=== PATIENT | male | born 1955 | race Caucasian/White ===

== ENCOUNTER 2018-01-27 11:54 | Outpatient (CLI) | payer OTHER ==
[2018-01-27 13:24] LABS: Hemoglobin 14.8 g/dL (14.0-18.0); Mean Corpuscular HGB CONC 32.8 g/dL (32.0-36.0); Mean Corpuscular Hemoglobin 27.5 pg (27.0-31.0); Mean Corpuscular Volume 83.8 fl (80.0-94.0); Mean Platelet Volume 9.2 fL (7.4-10.4); Platelet Count 173 thou/uL (130-400); White Blood Cell (WBC) Count 10.5 thou/uL (4.8-10.8)
[2018-01-27 13:51] LABS: Anion Gap 14 mmol/L (10-20); BUN (Urea Nitrogen) 15 mg/dL (8.4-25.7); Calc. Creatinine Clearance 0 mL/min (70-130); Calcium 9.9 mg/dL (7.8-10.44); Carbon Dioxide 30 mmol/L (23-31); Chloride 102 mmol/L (98-107); Estimated GFR-MDRD 83; Glucose 142 mg/dL (80-115); Potassium 4.3 mmol/L (3.5-5.1); Sodium 142 mmol/L (136-145)
--- NOTE | 2018-01-27 14:40 | EKG ---
Test Reason : Blood Pressure : / mmHG Vent. Rate : 066 BPM Atrial Rate : 066 BPM P-R Int : 230 ms QRS Dur : 110 ms QT Int : 392 ms P-R-T Axes : 039 -57 031 degrees QTc Int : 410 ms Sinus rhythm with 1st degree A-V block Left anterior fascicular block Possible Anterior infarct , age undetermined Abnormal ECG No previous ECGs available Confirmed by HAMMAD PACE ([id number]) on 01/27/2018 2:39:56 PM Referred By: TASHA Confirmed By:HAMMAD PACE
== END 2018-01-27 11:55 | disposition home or self-care (01) ==
LOC: LABBT 11:54
PROVIDERS: ATTEND Neurological Surgery
DX: Z01.818 Encounter for other preprocedural examination (principal); M48.061 Spinal stenosis, lumbar region without neurogenic claudication; M54.16 Radiculopathy, lumbar region
CPT/HCPCS: 80048; 85027; 93005; 93010

== ENCOUNTER 2018-02-03 05:33 | Day surgery (SDC) | payer OTHER ==
[2018-01-27 12:25] VITALS: BMI 36.3
[2018-02-03] MEDS ORDERED: Fentanyl 250 MCG/5 ML VIAL ONE (06:09)
[2018-02-03] MEDS ORDERED: Midazolam HCl 2 mg/2 ml Vial ONE (06:09)
[2018-02-03] MEDS ORDERED: Bupivacaine HCl 0.5%/Epinephrine 1:200,000/PF 30 ml Vial ONE (06:22)
[2018-02-03] MEDS ORDERED: Thrombin 5000 UNITS/5 ML VIAL ONE (06:22)
[2018-02-03] MEDS ORDERED: CEFAZOLIN/Water 2 GM/20 ML SYRINGE ONE ×2 (06:33→11:05)
--- NOTE | 2018-02-03 07:34 | HP ---
DATE OF ENCOUNTER: 02/03/2018 HISTORY OF PRESENT ILLNESS: Mr. Navarro is a pleasant 62-year-old man presenting for evaluation of several years with neurogenic claudication symptoms, back pain, and bilateral lower extremity L5 pain s without left much more frequent and severe than right. He has had physical therapy chiropractics a nd more recently epidural steroid injections and facet blocks with our colleagues at [facility] in [place] specifically with Dr. Smith. He has had a lot of excess with different interven tions, but just feels the symptoms are continuing to worsen and progress. MRI of disk 03/2017 revealed severe central canal stenosis at L3-L4 as well as bilateral severe neuroforaminal narrowing at L5, both of which I feel are likely implicated in his pain presentation. PAST MEDICAL AND SURGICAL HISTORY: Unassessed. ALLERGIES: No known drug allergies. PHYSICAL EXAMINATION: Patient is alert and oriented x3. Gait is slow, stooped, and antalgic. Lower extremity motor exam is normal. ASSESSMENT: Lumbar stenosis with neurogenic claudication. PLAN: Dr. Mosher met with the patient, reviewed imaging and advocated for L3-L4 decompression as well as a left L5 facetectomy. He explained to the patient's risks, benefits, and alternatives of the pr ocedure. The patient expressed understanding and would like to move forward with surgery as analilia julio. The patient is mentally competent and capable of making medical decisions for himself, and we paul l move forward with surgery as planned. This is David Roper PA-C dictating for Dr. Mosher.
[2018-02-03] MEDS ORDERED: Fentanyl 100 MCG/2 ML VIAL ONE ×2 (08:08→09:20)
[2018-02-03] MEDS ORDERED: Tamsulosin HCl 0.4 MG CAP ONE (09:13)
--- NOTE | 2018-02-03 09:19 | OP ---
DATE OF PROCEDURE: 02/03/2018 SURGEON: Philip Mosher M.D. STAKE DRIVER: David Roper PA-C. INDICATION: Pain. DIAGNOSES: Lumbar stenosis, lumbar radiculopathy. PROCEDURES PERFORMED: Two distinct procedures L3-L4 lumbar decompression, left L5 facetectomy, nicole inotomy, decompression. ANESTHESIA: General. TECHNIQUE: The patient was brought into the operating room and placed under general anesthesia. He was flipped from a supine to a prone position on the operating room table. A linear incision was dorian nned at L3-L4 and L5-S1. After prepping and draping and after an appropriate operative pause, the in cision was created. The soft tissues were swept away of midline. A self-retaining retractor was dorian nicole at L3-L4, and a C-arm image was obtained to confirm the appropriate location. After confirming t he appropriate location, laminectomy was performed at L3-L4. High-speed cutting drill bit as well as 2, 3 and 4-mm Kerrisons were then used to perform a laminectomy, which extended to encompass the med ial aspect of facet joints until the lateral recesses and central canal were decompressed. We then r edirected our attention to L5-S1 where soft tissues were swept left of midline. The L5-S1 interface was identified using C-arm fluoroscopy. High-speed cutting drill bit as well as 2, 3 and 4 mm Kerris ons used to perform a hemilaminectomy. Medial facetectomy encompassed at least 50% of the facet join t and a foraminotomy over the exiting L5 nerve root. The L5 nerve root was identified and was decomp ressed circumferentially. The wound was then irrigated. Hemostasis was maintained throughout. The wound was then closed in anatomic layers and a pressure dressing was applied. There were no known pr ocedural complications.
[2018-02-03] MEDS ORDERED: Glycopyrrolate 0.2 MG/ML 5 ML SYRINGE ONE (10:58)
[2018-02-03] MEDS ORDERED: PROPOFOL 200 MG/20 ML VIAL ONE (10:58)
[2018-02-03] MEDS ORDERED: Ondansetron HCl/PF 4 MG/2 ML Vial ONE (10:58)
[2018-02-03] MEDS ORDERED: Lidocaine 1% PF 5 ML VIAL ONE (10:58)
[2018-02-03] MEDS ORDERED: ePHEDrine/0.9% NaCl/PF SYRINGE 50 mg/10 ml ONE (10:58)
== END 2018-02-03 11:52 | disposition home or self-care (01) ==
LOC: SDC 05:33
PROVIDERS: ATTEND Neurological Surgery
PROC: 00NY0ZZ Release Lumbar Spinal Cord, Open Approach (ICD-10-PCS; principal; 2018-02-03)
DX: M48.062 Spinal stenosis, lumbar region with neurogenic claudication (principal); M43.06 Spondylolysis, lumbar region; Z79.899 Other long term (current) drug therapy
CPT/HCPCS: 36416; 76001; 96374; 96375; J0670; J2001; J2250; J2405; J2704; J3010